=== PATIENT | female | born 1990 | race Caucasian/White ===

== ENCOUNTER 2016-08-11 13:56 | Emergency (ER) | payer BC, OTHER ==
[2016-08-11 14:13] VITALS: BP 115/76
[2016-08-11] MEDS ORDERED: Ondansetron 4 MG/2 ML SDV IVPUSH ONE (14:44)
[2016-08-11] MEDS ORDERED: Sodium Chloride 0.9% 1,000 ML IV ONE (14:44)
[2016-08-11] MEDS ORDERED: HYDROmorphone 0.5 MG/0.5 ML Syringe IVPUSH ONE (14:44)
[2016-08-11] MEDS ORDERED: Diatrizoate Meglumine/Diatrizoate Sodium 37% 120 ML Bottle PO ONE (14:56)
[2016-08-11] MEDS ORDERED: Sodium Chloride 0.9% 10 ML Syringe FLUSH ONE (14:56)
[2016-08-11] MEDS ORDERED: Iopamidol 612 MG/ML 100 ML Bottle IVPUSH ONE (14:56)
[2016-08-11] MEDS: Sodium Chloride 0.9% 10 ML Syringe FLUSH PRN ×2 (15:22→15:54)
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
--- NOTE | 2016-08-11 16:31 | CT ---
CT abdomen and pelvis Technique: Multiple axial sections were obtained from above the dome of the diaphragm inferiorly through the pubic symphysis. Intravenous and oral contrast was utilized. Findings: Appendix is seen and appears normal in size. Mild increased stool is noted within portions of the colon. No bowel dilatation or bowel wall thickening is seen. Visualized lung bases are clear. Liver shows no focal parenchymal abnormality. Spleen appears within normal limits. Kidneys show symmetric contrast enhancement. There are some areas of cortical loss within the right kidney compatible with scarring. Small upper pole cyst is noted within the right kidney measuring 1.1 cm. Right kidney is smaller in size than the left kidney. Right kidney has a length of 6.8 cm and left kidney has a length of 10.5 cm. Pancreas is within normal limits. Adrenal glands show no nodule. Gallbladder shows no calcified gallstones. Aorta shows no aneurysmal dilatation. No retroperitoneal adenopathy or mesenteric abnormalities are seen. No pelvic adenopathy or mass is seen. Physiologic appearing cyst is noted within the right ovary. No inflammatory change or free fluid is seen within the abdomen or pelvis. Impression: 1. Mild increased stool noted within portions of the colon. 2. Smaller right kidney than left kidney with areas of cortical thinning/scarring seen within the right kidney. Incidental small cyst noted within the upper right kidney. 3. No additional abnormality is appreciated on CT study of the abdomen and pelvis. Diagnostic code #2
== END 2016-08-11 17:15 | disposition home or self-care (01) ==
LOC: JD.ED 13:56
DX: K59.00 Constipation, unspecified (principal); N39.0 Urinary tract infection, site not specified; F17.210 Nicotine dependence, cigarettes, uncomplicated
CPT/HCPCS: 36415; 74177; 80053; 81001; 85025; 86140; 87086; 96361; 96374; 99284; J2405; J7040; J7050; Q9963; Q9967